=== PATIENT | male | born 1965 | race Caucasian/White ===

== ENCOUNTER 2018-07-02 09:32 | Day surgery (SDC) | payer OTHER ==
[~2018-07-02 09:32] MED LIST: PROPOFOL 500 MG/50 ML EMU IV ONE
[2018-07-02 10:26] VITALS: RESP 16
[2018-07-02 10:41] VITALS: BP 142/90; PULSE 69; TEMP 98.6; O2SAT 100
== END 2018-07-02 11:00 | disposition home or self-care (01) | DRG 951 ==
LOC: SURG 09:32
PROVIDERS: ATTEND Surgery
DX: Z12.11 Encounter for screening for malignant neoplasm of colon (principal); K57.32 Diverticulitis of large intestine without perforation or abscess without bleeding; D12.0 Benign neoplasm of cecum
CPT/HCPCS: 99001; J2704

== ENCOUNTER 2019-02-12 20:01 | Emergency (ER) | payer OTHER ==
[2019-02-12] MEDS ORDERED: CEFTRIAXONE 1 GM PDS 1 GM in SODIUM CHLORIDE 0.9% 50 ML 50 ML IV ONE (20:07)
[2019-02-12] MEDS ORDERED: ONDANSETRON HCL 4 MG/2 ML SOL IV ONE (20:08)
[2019-02-12] MEDS ORDERED: FENTANYL 100MCG/2ML SOL IV ONE (20:08)
[2019-02-12] MEDS ORDERED: ONDANSETRON HCL 4 MG/2 ML SOL ONE (20:10)
[2019-02-12] MEDS ORDERED: CEFTRIAXONE 1 GM PDS ONE (20:11)
[2019-02-12 20:13] LABS: BASOPHILS % (AUTO) 1 % (0-3); EOSINOPHILS % (AUTO) 3 % (0-9); HEMATOCRIT 39 % (39-53); HEMOGLOBIN 13.7 gm/dl (13.5-17.7); MEAN CORPUSCULAR HEMOGLOBIN 31.1 pg (27.0-32.0); MEAN CORPUSCULAR HGB CONC 35.3 gm/dl (32.0-36.0); MEAN CORPUSCULAR VOLUME 88 fL (80-100); NEUTROPHILS % (AUTO) 66.4 % (37-80)
[2019-02-12] MEDS ORDERED: FENTANYL 100MCG/2ML SOL ONE (20:17)
[2019-02-12 20:21] VITALS: TEMP 97.4
[2019-02-12 20:23] VITALS: O2SAT 98
[2019-02-12 20:23] LABS: ALBUMIN 4.1 gm/dl (3.4-5.0); BILIRUBIN,TOTAL 0.6 mg/dl (0.2-1.0); CALCIUM 8.9 mg/dl (8.5-10.1); CARBON DIOXIDE 23.3 mEq/L (21-32); CREATININE 1.05 mg/dl (0.80-1.30); POTASSIUM 3.8 mMol/L (3.5-5.1); TOTAL PROTEIN 7.8 gm/dl (6.4-8.2)
[2019-02-12] MEDS ORDERED: SODIUM CHLORIDE 0.9% 1000ML 1,000 ML IV SCH (20:30)
[2019-02-12 20:35] VITALS: BP 163/90; PULSE 98; RESP 18
== END 2019-02-12 21:00 | disposition short-term general hospital (02) | DRG 605 ==
LOC: ED 20:01
DX: S61.402A Unspecified open wound of left hand, initial encounter (principal); S62.615B Displaced fracture of proximal phalanx of left ring finger, initial encounter for open fracture; W32.0XXA Accidental handgun discharge, initial encounter; R40.2362 Coma scale, best motor response, obeys commands, at arrival to emergency department; R40.2142 Coma scale, eyes open, spontaneous, at arrival to emergency department; R40.2252 Coma scale, best verbal response, oriented, at arrival to emergency department
CPT/HCPCS: 73130; 80053; 85025; 85610; 96365; 96374; 99283; 99285; G0390; J0696; J2405; J3010; A6402; A6446